=== PATIENT | female | born 1950 | race Two or more races ===

== ENCOUNTER 2021-03-04 07:37 | Day surgery (SDC) | payer OTHER | END 2021-03-04 12:00 | disposition home or self-care (01) | LOC: AMB-ENDOS 07:37 | PROVIDERS: ATTEND Surgery | DX: D12.2 Benign neoplasm of ascending colon (principal); D12.3 Benign neoplasm of transverse colon; D12.4 Benign neoplasm of descending colon; Z20.822 Contact with and (suspected) exposure to COVID-19; Z12.11 Encounter for screening for malignant neoplasm of colon ==